=== PATIENT | female | born 1985 | race Caucasian/White ===

== ENCOUNTER 2019-03-01 06:33 | Day surgery (SDC) | payer OTHER | END 2019-03-01 16:20 | disposition home or self-care (01) | LOC: CIR.AMB 06:33 | DX: T83.32XA Displacement of intrauterine contraceptive device, initial encounter (principal) ==

== ENCOUNTER → 2019-12-24 13:02 | Outpatient (CLI) | payer OTHER | END | disposition home or self-care (01) | LOC: LAB 13:02 | PROVIDERS: ATTEND Obstetrics & Gynecology Maternal & Fetal Medicine | DX: O09.219 Supervision of pregnancy with history of pre-term labor, unspecified trimester (principal) ==

== ENCOUNTER → 2019-12-24 | Outpatient (CLI) | payer OTHER | END | disposition home or self-care (01) | LOC: PRENATAL 10:40 | PROVIDERS: ATTEND Specialist | DX: O99.89 Other specified diseases and conditions complicating pregnancy, childbirth and the puerperium (principal); O09.212 Supervision of pregnancy with history of pre-term labor, second trimester; O35.3XX1 Maternal care for (suspected) damage to fetus from viral disease in mother, fetus 1 ==

== ENCOUNTER 2020-03-17 19:01 | Outpatient (CLI) | payer OTHER | END 2020-03-18 08:32 | disposition home or self-care (01) | LOC: OBS/DEL 19:01 | PROVIDERS: ATTEND Specialist | DX: O60.03 Preterm labor without delivery, third trimester (principal) ==

== ENCOUNTER 2020-03-27 11:15 | Inpatient (IN) | payer OTHER ==
[~2020-03-27] VITALS: Ht 162.6 cm; Wt 1.8 kg
[~2020-03-27 11:15] MED LIST: LEVOTHYROXINE25 MCG PO; PRENATAL TABLE1 EAC1 PO; PROGESTERO50 MG/1 M1 IM
[2020-03-29] MEDS ORDERED: ANUSOL-HC25 MG RECTAL (14:29)
== END 2020-03-29 18:31 | disposition home or self-care (01) | DRG 798 ==
LOC: LDR 11:15 → OB/GYN 11:15
PROVIDERS: ADMIT Specialist; ATTEND Specialist
PROC: 10E0XZZ Delivery of Products of Conception, External Approach (ICD-10-PCS; principal; 2020-03-27)
PROC: 4A1HXFZ Monitoring of Products of Conception, Cardiac Rhythm, External Approach (ICD-10-PCS; 2020-03-27)
PROC: 3E033VJ Introduction of Other Hormone into Peripheral Vein, Percutaneous Approach (ICD-10-PCS; 2020-03-27)
PROC: 0UB70ZZ Excision of Bilateral Fallopian Tubes, Open Approach (ICD-10-PCS; 2020-03-28)
DX: O60.14X0 Preterm labor third trimester with preterm delivery third trimester, not applicable or unspecified (principal); Z37.0 Single live birth; Z3A.32 32 weeks gestation of pregnancy; Z20.828 Contact with and (suspected) exposure to other viral communicable diseases; Z30.2 Encounter for sterilization